=== PATIENT | male | born 1995 | race Caucasian/White ===

== ENCOUNTER 2017-05-11 14:17 | Emergency (ER) | payer OTHER ==
[~2017-05-11] VITALS: Ht 190.5 cm; Wt 86.1 kg
[2017-05-11 14:30] VITALS: Ht 190.5 cm; Wt 86.1 kg
--- NOTE | 2017-05-11 15:27 | DIAGNOSTIC IMAGING REPORT ---
R FOREARM 2 VIEWS ROUTINE CLINICAL HISTORY: Right forearm pain status post trauma COMPARISON: None DISCUSSION: There is a nondisplaced radial head fracture. No additional fractures are visualized. IMPRESSION: Radial head fracture. Electronically signed by: Pancho Hammond M.D. 05/11/2017 3:25 PM Dictated Date/Time: 05/11/2017 3:25 PM
--- NOTE | 2017-05-11 15:27 | DIAGNOSTIC IMAGING REPORT ---
R HUMERUS MIN 2 VIEWS ROUTINE CLINICAL HISTORY: Right humerus pain status post trauma COMPARISON: None. DISCUSSION: No fractures or dislocations are visualized. IMPRESSION: No fractures identified. Electronically signed by: Pancho Hammond M.D. 05/11/2017 3:26 PM Dictated Date/Time: 05/11/2017 3:26 PM
--- NOTE | 2017-05-11 15:29 | DIAGNOSTIC IMAGING REPORT ---
R ELBOW MIN 3 VIEWS ROUTINE CLINICAL HISTORY: Right elbow pain status post trauma COMPARISON: None. DISCUSSION: There is a joint effusion. There is a nondisplaced radial head/neck fracture. There is no dislocation. IMPRESSION: Nondisplaced radial head/neck fracture. Electronically signed by: Pancho Hammond M.D. 05/11/2017 3:27 PM Dictated Date/Time: 05/11/2017 3:26 PM
[2017-05-11] MEDS ORDERED: HYDR-5688 PO (15:56)
--- NOTE | 2017-05-11 15:57 | EMERGENCY ROOM VISIT NOTE ---
History First contact with patient: 14:34 Chief Complaint: ELBOW PAIN/INJURY Stated Complaint: RT ELBOW INJURY History of Present Illness The patient is a 22 year old male who presents to the Emergency Room via private vehicle with complaints of "right elbow injury". The patient states that earlier today around noon time he slipped in the mud, and fell forward landing on his right elbow. He now notes pain just distal to the right elbow that he rates as a 7/10. He denies any numbness or tingling but does that the pain does radiate down to the right wrist. He is right-handed. Review of Systems A complete 6-point Review of Systems was discussed with the patient, with pertinent positives and negatives listed in the History of Present Illness. All remaining Review of Systems questions can be considered negative unless otherwise specified. Past Medical/Surgical History Noncontributory. Social History Smoking Status: Never Smoker Patient is a [employer] student and lives locally. Current/Historical Medications Scheduled PRN Hydrocodone/Acetaminophen 5MG/325MG (Elizabeth 5MG/325MG), 1-2 TABLET PO Q6 PRN for Pain Physical Exam Vital Signs Date Time Temp Pulse Resp B/P (MAP) Pulse Ox O2 Delivery O2 Flow Rate FiO2 05/11/17 16:11 36.8 83 18 133/88 99 05/11/17 14:30 36.8 83 18 133/88 99 Room Air Physical Exam VITAL SIGNS - Vital signs and nursing notes were reviewed. Stable. GENERAL -22-year-old male appearing his stated age who is in no acute distress. Communicates well with provider and answers questions appropriately. SKIN - Without rashes. Skin is intact overlying the right elbow region. Mild edema and erythema overlying the olecranon process of the right elbow. EXTREMITIES - tenderness to palpation overlying the patient's distal right humerus as well as the olecranon and radial head region. He has tenderness extending down into the right wrist. He is neurovascularly intact in this region. Decreased range of motion at the region of the right elbow secondary to pain. +5/5 strength noted in UE/LE bilaterally. Medical Decision & Procedures ER Provider Diagnostic Interpretation: [~ rep ct add3]] R HUMERUS MIN 2 VIEWS ROUTINE CLINICAL HISTORY: Right humerus pain status post trauma COMPARISON: None. DISCUSSION: No fractures or dislocations are visualized. IMPRESSION: No fractures identified. Electronically signed by: Pancho Hammond M.D. 05/11/2017 3:26 PM Dictated Date/Time: 05/11/2017 3:26 PM R ELBOW MIN 3 VIEWS ROUTINE CLINICAL HISTORY: Right elbow pain status post trauma COMPARISON: None. DISCUSSION: There is a joint effusion. There is a nondisplaced radial head/neck fracture. There is no dislocation. IMPRESSION: Nondisplaced radial head/neck fracture. Electronically signed by: Pancho Hammond M.D. 05/11/2017 3:27 PM Dictated Date/Time: 05/11/2017 3:26 PM R FOREARM 2 VIEWS ROUTINE CLINICAL HISTORY: Right forearm pain status post trauma COMPARISON: None DISCUSSION: There is a nondisplaced radial head fracture. No additional fractures are visualized. IMPRESSION: Radial head fracture. Electronically signed by: Pancho Hammond M.D. 05/11/2017 3:25 PM Dictated Date/Time: 05/11/2017 3:25 PM Medications Administered Medications (Trade) Dose Ordered Sig/Lloyd Route Start Time Stop Time Status Last Admin Dose Admin Ibuprofen (Motrin Tab) 600 mg NOW STAT PO 05/11/17 15:59 05/11/17 16:00 DC 05/11/17 16:10 600 MG Medical Decision Patient was seen and evaluated as above. He presents to us today status post fall with right arm pain. It is localized around the right elbow extending into the forearm. After obtaining a thorough history and physical examination the above work up was performed. X-rays were obtained. He declined pain medication initially. Radial head fracture noted. Versus risk of posterior long-arm versus sling was discussed. I believe that because the patient is neurovascularly intact, the fracture is nondisplaced and will be able to maintain a position of comfort I believe an arm sling is appropriate. He is to call orthopedics to schedule follow-up. He was neurovascularly intact throughout his stay. He will be given a short prescription for Elizabeth for his pain over the next few days in the event that it is not controlled with over-the -counter pain medication. He was instructed to not take Tylenol with this. He was given ibuprofen here prior to departure. The patient was educated upon management, had questions answered prior to discharge, and was discharged home in good condition. No red flags in the [facility] drug monitoring system. In the evaluation and treatment of this patient the following differential diagnoses were entertained: Elbow fracture, dislocation, radial head fracture, wrist fracture, among others. Impression Primary Impression: Radial head fracture, closed Departure Information Dispostion Home / Self-Care Condition GOOD Prescriptions Hydrocodone/Acetaminophen 5MG/325MG (Elizabeth 5MG/325MG) Tab 1-2 TABLET PO Q6 Y for Pain, #12 TAB For Initial Treatment Prov: Jordan Perez PA-C 05/11/17 Referrals No Doctor, Assigned (PCP) Bernardino Diez M.D. Patient Instructions My [facility] Additional Instructions You have been treated in the Emergency Department for Elbow Pain. You have been prescribed NORCO to be used for pain control. This is a narcotic medication. You cannot drive or consume alcohol while on this medicine. This medicine should only be used for pain that cannot be controlled with over-the- counter pain medicines. Please do not take Tylenol with this!! For pain control, you can use the following [id number] medicines: - Regular strength (325mg/tab) Tylenol (acetaminophen) 2 tabs every 4-6 hours as needed. Do not exceed 12 tablets in a 24 hour period. Avoid taking more than 3 grams (3000 mg) of Tylenol per day. This includes any other sources of acetaminophen you may take on a regular basis. - Regular strength (200 mg/tab) Advil (ibuprofen) 1-2 tabs every 4-6 hours as needed. Do not exceed a dose of 3200 mg per day. If this is a recent injury (<24 hrs), ice can be applied to the area of pain for the first 3 days to help decrease pain and inflammation. You have been provided the number for an Orthopaedic Surgeon. You should call this number as soon as possible to establish a follow-up visit from today's Emergency Department visit. Keep the sling/splint in place until evaluated by Orthopedics. Return to the Emergency Department if your current symptoms worsen despite treatment course outlined above, or if you develop any of the following symptoms : intractable pain despite aforementioned treatment course or new onset of numbness or tingling of the arm.
[2017-05-11] MEDS ORDERED: IBUPROFEN 600 MG TAB PO STA (15:59)
[2017-05-11 16:11] VITALS: BP 133/88; PULSE 83; TEMP 36.8; O2SAT 99
== END 2017-05-11 16:12 | disposition home or self-care (01) ==
LOC: C.EDB 14:20 → C.EDD 16:12
DX: S52.124A Nondisplaced fracture of head of right radius, initial encounter for closed fracture (principal); W01.0XXA Fall on same level from slipping, tripping and stumbling without subsequent striking against object, initial encounter

== ENCOUNTER → 2017-06-08 | Outpatient (CLI) | payer OTHER ==
[~2017-06-08] MED LIST: HYDR-5688 PO
== END | disposition home or self-care (01) ==
LOC: C.RDSM 14:59
PROVIDERS: ATTEND Physical Medicine & Rehabilitation Sports Medicine
DX: S52.121A Displaced fracture of head of right radius, initial encounter for closed fracture (principal); X58.XXXA Exposure to other specified factors, initial encounter